=== PATIENT | male | born 1980 | race American Indian/Alaskan Native ===

== ENCOUNTER 2020-06-18 01:50 | Emergency (ER) | payer SELFPAY ==
[2020-06-18] MEDS ORDERED: ASPIRIN 81 MG TAB CHEW PO ONE (02:22)
--- NOTE | 2020-06-18 02:27 | Emergency Department Report ---
ED Chest Pain HPI - General Stated Complaint: CHEST PAIN/SOB - History of Present Illness Initial Comments: Patient is a 40-year-old white male with past medical history except anxiety who presents to the ED with complaint of acute onset persistent intermittent left- sided chest pain that radiates to the left arm and left shoulder for the last 10 hours. Patient states that the symptoms have been persistent and intermittent and about 2 hours prior to arrival he felt scared with a tingling sensation in his left arm and shortness of breath. Patient states that he is currently dealing with a lot of stress from family situations and illnesses. Patient denies nausea, vomiting, change in vision, dizziness, syncope, abdominal pain, fever, chills, cough, headache, sore throat, palpitations or abdominal pain. MD Complaint: chest pain (Left-sided), other (dyspnea, chest pressure) -: Sudden, hour(s) (10) Onset: other (persistent, no pattern) Pain Location: left chest Pain Radiation: LUE (left shoulder and arm) Quality: tightness, pressure Consistency: intermittent Improves With: nothing Worsens With: nothing re: dyspnea. denies: nausea, vomting, diaphoresis, sense of impending doom Other Symptoms: denies: cough, fever, syncope, rash, acid taste in mouth, leg swelling, palpitations, burping, other Treatments Prior to Arrival: none Aspirin use within the Past 7 Days: (0) No - Related Data On Oral Contraceptives: No Previous Rx's Medication Instructions Recorded Last Taken Type Levothyroxine [Synthroid] 50 mcg PO QAM #30 tablet 06/18/20 Unknown Rx hydrOXYzine PAMOATE [Vistaril] 25 mg PO Q8HR PRN #30 capsule 06/18/20 Unknown Rx Allergies Allergy/AdvReac Type Severity Reaction Status Date / Time No Known Allergies Allergy Unverified 06/18/20 02:38 Heart Score - HEART Score History: Slightly suspicious EKG: Normal Age: < 45 Risk factors: No known risk factors Troponin: < normal limit HEART Score: 0 - Critical Actions Critical Actions: 0-3 pts:0.9-1.7%risk of adverse cardiac event.Candidate for discharge ED Review of Systems ROS: Stated complaint: CHEST PAIN/SOB Other details as noted in HPI Constitutional: denies: chills, fever Eyes: denies: eye pain, eye discharge, vision change ENT: denies: ear pain, throat pain Respiratory: denies: cough, shortness of breath, wheezing Cardiovascular: chest pain (left sided chest pressure like pain). denies: palpitations, dyspnea on exertion, edema, syncope, paroxysmal nocturnal dyspnea Endocrine: no symptoms reported Gastrointestinal: denies: abdominal pain, nausea, vomiting, diarrhea Genitourinary: denies: urgency, dysuria Musculoskeletal: arthralgia (left shoulder and arm). denies: back pain, joint swelling Skin: denies: rash, lesions Neurological: denies: headache, weakness, paresthesias Psychiatric: anxiety. denies: depression Hematological/Lymphatic: denies: easy bleeding, easy bruising ED Past Medical Hx - Medications Home Medications: Home Medications Medication Instructions Recorded Confirmed Last Taken Type Levothyroxine [Synthroid] 50 mcg PO QAM #30 tablet 06/18/20 Unknown Rx hydrOXYzine PAMOATE [Vistaril] 25 mg PO Q8HR PRN #30 capsule 06/18/20 Unknown Rx ED Physical Exam - General General appearance: alert, in no apparent distress - Head Head exam: Present: atraumatic, normocephalic, normal inspection - Eye Eye exam: Present: normal appearance, PERRL, EOMI Pupils: Present: normal accommodation - ENT ENT exam: Present: normal exam, normal orophraynx, mucous membranes moist, TM's normal bilaterally, normal external ear exam - Neck Neck exam: Present: normal inspection, full ROM - Respiratory Respiratory exam: Present: normal lung sounds bilaterally. Absent: respiratory distress, wheezes, rales, rhonchi, chest wall tenderness, accessory muscle use, decreased breath sounds, prolonged expiratory - Cardiovascular Cardiovascular Exam: Present: regular rate, normal rhythm, normal heart sounds. Absent: systolic murmur, diastolic murmur, rubs, gallop - GI/Abdominal GI/Abdominal exam: Present: soft, normal bowel sounds. Absent: tenderness, guarding, rebound, hyperactive bowel sounds, hypoactive bowel sounds, organomegaly - Extremities Exam Extremities exam: Present: normal inspection, full ROM, normal capillary refill - Back Exam Back exam: Present: normal inspection, full ROM. Absent: tenderness, CVA tender ness (R), CVA tenderness (L), muscle spasm, paraspinal tenderness, vertebral tenderness - Neurological Exam Neurological exam: Present: alert, oriented X3, CN II-XII intact, normal gait, reflexes normal - Psychiatric Psychiatric exam: Present: normal affect, normal mood, anxious - Skin Skin exam: Present: warm, dry, intact, normal color. Absent: rash ED Course Vital Signs 06/18/20 06/18/20 02:37 03:05 Temperature 98.1 F Pulse Rate 68 60 Respiratory 16 16 Rate Blood Pressure 126/85 Blood Pressure 109/67 [Right] O2 Sat by Pulse 97 97 Oximetry ARTURO score - Arturo Score Age > 65: (0) No Aspirin use within the Past 7 Days: (0) No 3 or more CAD Risk Factors: (0) No 2 or more Angina events in past 24 hrs: (0) No Known CAD with more than 50% Stenosis: (0) No Elevated Cardiac Markers: (0) No ST Deviation Greater than 0.5mm: (0) No ARTURO Score: 0 ED Medical Decision Making - Lab Data Result diagrams: 06/18/20 02:31 06/18/20 02:31 - EKG Data EKG shows normal: sinus rhythm Rate: normal - EKG Data Interpretation: normal EKG 06/18/20 04:07 EKG shows normal sinus rhythm with a ventricular rate of [address] or T wave abnormalities. - Radiology Data Radiology results: report reviewed, image reviewed Findings [facility] [address] [place] [address] XRay Report Signed Patient: XAVI RODRIGUEZ MR#: [id number] : 1980 Acct:[id number] Age/Sex: 40 / M ADM Date: 06/18/20 Loc: ED Attending Dr: Ordering Physician: BIN MORATAYA Date of Service: 06/18/20 Procedure(s): XR chest 1V ap Accession Number(s): [id number] cc: BIN MORATAYA Fluoro Time In Minutes: CHEST 1 VIEW INDICATION / CLINICAL INFORMATION: dyspnea, chest pain. COMPARISON: None available. FINDINGS: SUPPORT DEVICES: None. HEART / MEDIASTINUM: No significant abnormality. LUNGS / PLEURA: No significant pulmonary or pleural abnormality. No pneumothorax. ADDITIONAL FINDINGS: No significant additional findings. IMPRESSION: 1. No acute findings. Signer Name: Charleen Arvizu MD Signed: 06/18/2020 2:36 AM Workstation Name: [id number] Transcribed By: Dictated By: Charleen Arvizu MD Electronically Authenticated By: Charleen Arvizu MD Signed Date/Time: 06/18/20235 DD/ 4 TD/TT: - Medical Decision Making This is a 40-year-old white male with past medical history except anxiety who presents to the ED with complaint of acute onset persistent intermittent left- sided chest pain that radiates to the left arm and left shoulder for the last 10 hours. Patient states that the symptoms have been persistent and intermittent and about 2 hours prior to arrival he felt scared with a tingling sensation in his left arm and shortness of breath. Patient states that he is currently dealing with a lot of stress from family situations and illnesses. In the ED, patient is alert and oriented x3 and is not in distress but anxious in triage with stable vital signs. EKG shows normal sinus rhythm with a ventricular rate of [address] or T wave abnormalities or pathological Q waves. Chest x- ray shows no acute cardiopulmonary abnormalities or pneumonitis. Lab test results were reviewed and showed acute leukocytosis of 11,800 and elevated TSH of 5.560, INR 1.22 and PT of 15.4. The rest of the lab test results are nonactionable. Patient's heart score is 0 and patient is PERC negative per Well s criteria. Patient symptoms are likely due to anxiety due to his domestic stressors about family member illnesses, and hypothyroidism. Patient was discharged home on anxiety medications and Synthroid and advised to follow-up with his primary care physician in 3 to 5 days for reevaluation. Patient was advised to return to the ED immediately if symptoms get worse. - Differential Diagnosis Anxiety; ACS; PE; pneumonia; costochondritis; muscle strain Critical care attestation.: If time is entered above; I have spent that time in minutes in the direct care of this critically ill patient, excluding procedure time. ED Disposition Clinical Impression: Acute nonspecific chest pain with low risk of coronary artery disease, Anxiety as acute reaction to exceptional stress, Hypothyroidism in adult Disposition: -01 TO HOME OR SELFCARE Is pt being admited?: No Does the pt Need Aspirin: No Condition: Stable Instructions: Generalized Anxiety Disorder, Adult, Chest Wall Pain, [id number], Nonspecific Chest Pain, Adult, Nonspecific Chest Pain, Adult, [id number], Chest Pain (ED), Hypothyroidism Additional Instructions: All lab test results were reviewed and are all nonactionable except for TSH level that was elevated consistent with hypothyroidism. Therefore take medication as advised, drink plenty of fluids and follow-up with the primary ca re physician in 3 to 5 days for reevaluation. Return to the ED immediately if symptoms get worse. Prescriptions: Levothyroxine [Synthroid] 50 mcg PO QAM #30 tablet hydrOXYzine PAMOATE [Vistaril] 25 mg PO Q8HR PRN #30 capsule PRN Reason: Anxiety Referrals: LINDA PARRA MD [Staff Physician] - 3-5 Days Time of Disposition: 03:50 Print Language: SYRIAC
--- NOTE | 2020-06-18 02:41 | XRay Report ---
CHEST 1 VIEW INDICATION / CLINICAL INFORMATION: dyspnea, chest pain. COMPARISON: None available. FINDINGS: SUPPORT DEVICES: None. HEART / MEDIASTINUM: No significant abnormality. LUNGS / PLEURA: No significant pulmonary or pleural abnormality. No pneumothorax. ADDITIONAL FINDINGS: No significant additional findings. IMPRESSION: 1. No acute findings. Signer Name: Charleen Arvizu MD Signed: 06/18/2020 2:36 AM Workstation Name: [id number]
[2020-06-18 03:14] LABS: Hemoglobin 11.6 gm/dl (11.8-15.2); Mean Corpuscular HGB Conc 32 % (32-34); Platelet Count 279 K/mm3 (140-440); Red Blood Count 5.69 M/mm3 (3.65-5.03); Red Cell Distribution Width 16.8 % (13.2-15.2)
[2020-06-18 03:15] LABS: INR 1.22 (0.87-1.13)
[2020-06-18 03:16] LABS: Partial Thromboplastin Time 26.6 Sec. (24.2-36.6)
[2020-06-18 03:17] LABS: Mean Corpuscular Volume 63 fl (84-94)
[2020-06-18 03:18] LABS: Lymphocytes # (Auto) 0.4 K/mm3 (1.2-5.4); Lymphocytes % (Auto) 3.8 % (13.4-35.0); Mean Platelet Volume 59.6 fl (6-12); Monocytes # (Auto) 0.4 K/mm3 (0.0-0.8); Monocytes % (Auto) 3.4 % (0.0-7.3)
[2020-06-18 03:19] LABS: Basophils # (Auto) 0.1 K/mm3 (0.0-0.1); Eosinophils # (Auto) 0.1 K/mm3 (0.0-0.4); Eosinophils % (Auto) 3.4 % (0.0-4.3)
[2020-06-18 03:21] LABS: Total Cells Counted 100
[2020-06-18 03:22] LABS: Alanine Aminotransferase 15 units/L (7-56); Albumin 4.5 g/dL (3.9-5); BUN/Creatinine Ratio 9; Blood Urea Nitrogen 10 mg/dL (9-20); Calcium 9.5 mg/dL (8.4-10.2); Hemolysis Index 10; Platelet Estimate Consistent w Auto
[2020-06-18 04:13] VITALS: BP 121/74
== END 2020-06-18 04:13 | disposition home or self-care (01) ==
LOC: ED 01:50
DX: I25.10 Atherosclerotic heart disease of native coronary artery without angina pectoris (principal); F41.9 Anxiety disorder, unspecified; F43.9 Reaction to severe stress, unspecified; Z79.899 Other long term (current) drug therapy
CPT/HCPCS: 36415; 71045; 80053; 84443; 84484; 85007; 85025; 85610; 85730; 93005

== ENCOUNTER 2020-10-04 21:52 | Emergency (ER) | payer SELFPAY ==
[2020-10-04 22:00] VITALS: BP 149/90
--- NOTE | 2020-10-04 23:31 | Emergency Department Report ---
Chief Complaint: High BP Stated Complaint: HIGH BLOOD PRESSURE/SOB/NOSE BLEED - HPI History of Present Illness: 40-year-old -[place] male presents to the emergency room concern for elevated blood pressure and some mild labored breathing. Patient reports that he did have a nosebleed earlier today when he blows his nose. Patient also stated that he had taken some aspirin because his blood pressure was elevated. Patient states that he has an appointment tomorrow with his primary care provider for work-up for lymphoma. Patient was recently seen here in June and was noted to have hypothyroidism with a TSH of 5.69. Patient states he did start on paroxetine and it has leveled out. Patient at this time denies any chest pain no shortness of breath denies any nausea vomiting no abdominal pain. Blood pressure in triage was 149/90 heart rate was 62 oxygen level 98% on room air. Respirations are 18 - Exam Vital Signs: Vital Signs 10/04/20 21:58 Temperature 98.8 F Pulse Rate 62 Respiratory 18 Rate Blood Pressure 149/90 O2 Sat by Pulse 98 Oximetry Physical Exam: General: Awake, appropriately interactive, no acute distress. Neck: Supple. Full range of motion intact. Cardiovascular: Normal peripheral perfusion. Pulmonary: No respiratory distress. Patient is speaking normally without use of accessory muscles. Skin: No apparent rashes or lesions. Neurological: No facial asymmetry. Speech is clear. Follows commands. Patient is alert and oriented. Musculoskeletal: Full range of motion, no crepitus. No tenderness to palpate nonerythematous no edema test appreciated. Able to bear weight and ambulate without difficulty. Distal neurovascular and motor/sensory function is intact. Psych: Cooperative. Appropriate mood and affect. MSE screening note: Focused history and physical exam performed. Due to findings the following was ordered: 40-year-old -[place] male presents to the emergency room concern for elevated blood pressure and some mild labored breathing. Patient reports that he did have a nosebleed earlier today when he blows his nose. Patient also stated that he had taken some aspirin because his blood pressure was elevated. Patient states that he has an appointment tomorrow with his primary care provider for work-up for lymphoma. Patient was recently seen here in June and was noted to have hypothyroidism with a TSH of 5.69. Patient states he did start on paroxetine and it has leveled out. Patient at this time denies any chest pain no shortness of breath denies any nausea vomiting no abdominal pain. Blood pressure in triage was 149/90 heart rate was 62 oxygen level 98% on room air. Respirations are 18 ED Disposition for MSE Disposition: MED SCREENING EXAM-LEFT Is pt being admited?: No Does the pt Need Aspirin: No Condition: Stable Additional Instructions: Recommend to keep your appointment at 8:00 in the morning with your primary care provider. Return back to the emergency room if you start to have any shortness of breath chest pain nausea vomiting diarrhea. Referrals: [facility] [Other] - 3-5 Days
== END 2020-10-05 00:27 | disposition left against medical advice (07) ==
LOC: ED 21:52
DX: I10 Essential (primary) hypertension (principal); Z53.21 Procedure and treatment not carried out due to patient leaving prior to being seen by health care provider